=== PATIENT | female | born 1975 | race Caucasian/White ===

== ENCOUNTER 2019-12-12 13:53 | Emergency (ER) | payer OTHER ==
[2019-12-12 14:04] VITALS: BP 127/68; PULSE 83; TEMP 97.9; BMI 44.6
--- NOTE | 2019-12-12 14:55 | PDOC ---
History of Present Illness - General Chief Complaint: Vaginal Bleeding Stated Complaint: VAGINAL DISCHARGE Time Seen by Provider: 12/12/19 14:34 History Source: Patient Exam Limitations: No Limitations - History of Present Illness Initial Comments: 12/12/19 16:04 44 yo F with a hx of breast cancer s/p resection now in remission with prior C/ S presents to the emergency department with headache with concurrent vaginal bleeding. Per the patient, she has had 3 weeks of vaginal bleeding with associative lower abdominal cramping without radiation that is 4/10 in severity without radiation without aggravating or relieving factors. She has changed her pads 6-7x/day. The patient's headache was gradual in onset, located in the frontal aspect, with radiation to the back, sharp in nature, and has been ongoing for 1 week with gradual onset. Endorses subjective blurry vision, dizziness, and nausea. Denies the following: trauma, FND, vomiting, and lightheadedness. 3 years ago, the patient had continue vaginal bleeding with endometrial biopsy without abnormality. Meds: tamoxifen, iron allergies: NKDA Past History - Past Medical History Allergies/Adverse Reactions: Allergies Allergy/AdvReac Type Severity Reaction Status Date / Time No Known Allergies Allergy Verified 12/12/19 13:57 Home Medications: Ambulatory Orders Ibuprofen [Advil -] 400 mg PO TID PRN 12/12/19 COPD: No Other medical history: transfusion 2017 - Psycho Social/Smoking Cessation Hx Smoking History: Never smoked Hx Alcohol Use: No Drug/Substance Use Hx: No Review of Systems - Review of Systems Able to Perform ROS?: Yes Is the patient limited Citizen Of [place] proficient: No Constitutional: Yes: Weakness. No: Chills, Diaphoresis, Fever HEENTM: Yes: Blurred Vision. No: Eye Pain, Ear Pain, Nose Pain, Throat Pain, Mouth Pain Respiratory: No: Cough, Shortness of Breath, Hemoptysis Cardiac (ROS): No: Chest Pain, Lightheadedness, Palpitations, Chest Tightness ABD/GI: Yes: Nausea, Abdominal cramping. No: Constipated, Diarrhea, Poor Appetite, Poor Fluid Intake, Rectal Bleeding, Vomiting, Tarry Stools : No: Burning, Hematuria Musculoskeletal: No: Back Pain, Joint Pain, Neck Pain Integumentary: No: Bruising, Erythema, Rash Neurological: Yes: Headache. No: Numbness, Tingling, Tremors, Ataxia Psychiatric: No: Change in Appetite Endocrine: No: Unexplained Weight Loss Hematologic/Lymphatic: No: Anemia *Physical Exam - Vital Signs Last Vital Signs Temp Pulse Resp BP Pulse Ox 97.9 F 83 15 127/68 100 12/12/19 14:01 12/12/19 14:01 12/12/19 14:01 12/12/19 14:01 12/12/19 14:01 - Physical Exam General Appearance: Yes: Nourished, Appropriately Dressed. No: Apparent Distress, Intoxicated HEENT: positive: EOMI, JORGE, Normal Voice, Symmetrical, Pharynx Normal, Hearing Grossly Normal. negative: Pale Conjunctivae, Scleral Icterus (R), Scleral Icterus (L), Muffled/Hoarse voice, Pharyngeal Erythema, Tonsillar Exudate, Tonsillar Erythema, Nasal Congestion, Rhinorrhea, Sinus Tenderness, Excessive drooling Neck: positive: Trachea midline, Supple. negative: Tender, Lymphadenopathy (R) , Lymphadenopathy (L), Tender lateral, Tender midline Respiratory/Chest: positive: Lungs Clear, Normal Breath Sounds. negative: Chest Tender, Respiratory Distress, Accessory Muscle Use, Crackles, Rales, Rhonchi, Stridor, Wheezing Cardiovascular: positive: Regular Rhythm, Regular Rate, S1, S2. negative: Systolic Murmur Female Pelvic Exam: positive: normal external exam, cervical os closed, adnexal tenderness (right mild), other (blood in the vaginal vault). negative: CMT Gastrointestinal/Abdominal: positive: Normal Bowel Sounds, Tender (suprapubic region), Flat, Soft. negative: Distended, Guarding, Rebound Lymphatic: negative: Adenopathy Musculoskeletal: positive: Normal Inspection. negative: CVA Tenderness, Vertebral Tenderness Extremity: positive: Normal Capillary Refill, Normal Inspection, Normal Range of Motion. negative: Tender, Swelling, Calf Tenderness Integumentary: positive: Normal Color, Dry, Warm Neurologic: positive: structural draftsman II-XII NML intact, Fully Oriented, Alert, Normal Mood/ Affect, Normal Response, Motor Strength 5/5 ED Treatment Course - LABORATORY CBC & Chemistry Diagram: 12/12/19 14:45 12/12/19 14:45 Medical Decision Making - Medical Decision Making 44 yo F with a hx of breast cancer s/p resection now in remission with prior C/ S presents to the emergency department with headache with concurrent vaginal bleeding. Initial vitals: Initial Vital Signs Temp Pulse Resp BP Pulse Ox 97.9 F 83 15 127/68 100 12/12/19 14:01 12/12/19 14:01 12/12/19 14:01 12/12/19 14:01 12/12/19 14:01 Work up: ddx: patient presents with two main chief complaints. ddx headache: tension vs migraine vs cluster vs intracranial hemorrhage vs SAH ddx abdominal pain: ovarian torsion vs ovarian cyst vs UTI vs nephrolithiasis vs ectopic Patient had minimal pain on examination centered in the suprapubic region. Unlikely to be GI pathologies given relatively benign examination. Laboratory Tests 12/12/19 12/12/19 12/12/19 14:45 14:45 14:45 WBC 5.1 RBC 3.82 Hgb 10.0 L Hct 30.5 L MCV 79.7 L MCH 26.1 MCHC 32.7 RDW 16.0 H Plt Count 318 MPV 9.2 Absolute Neuts (auto) 2.4 Neutrophils % 46.9 Lymphocytes % 42.3 H Monocytes % 7.4 Eosinophils % 2.6 Basophils % 0.8 Nucleated RBC % 0 Sodium 139 Potassium 3.9 Chloride 110 H Carbon Dioxide 24 Anion Gap 5 L BUN 8.8 Creatinine 0.5 L Est GFR (CKD-EPI)AfAm 136.42 Est GFR (CKD-EPI)NonAf 117.71 Random Glucose 112 H Calcium 8.1 L Total Bilirubin 0.1 L AST 44 H ALT 50 Alkaline Phosphatase 130 H Total Protein 7.2 Albumin 3.3 L Serum , Qual Negative Urine Color Urine Appearance Urine pH Ur Specific [place] Urine Protein Urine Glucose (UA) Urine Ketones Urine Blood Urine Nitrite Urine Bilirubin Urine Urobilinogen Ur Leukocyte Esterase Urine WBC (Auto) Urine RBC (Auto) Urine Casts (Auto) U Epithel Cells (Auto) Urine Bacteria (Auto) Blood Type Antibody Screen 12/12/19 12/12/19 14:45 18:40 WBC RBC Hgb Hct MCV MCH MCHC RDW Plt Count MPV Absolute Neuts (auto) Neutrophils % Lymphocytes % Monocytes % Eosinophils % Basophils % Nucleated RBC % Sodium Potassium Chloride Carbon Dioxide Anion Gap BUN Creatinine Est GFR (CKD-EPI)AfAm Est GFR (CKD-EPI)NonAf Random Glucose Calcium Total Bilirubin AST ALT Alkaline Phosphatase Total Protein Albumin Serum , Qual Urine Color Red Urine Appearance Cloudy Urine pH 6.0 Ur Specific [place] 1.013 Urine Protein Trace Urine Glucose (UA) Negative Urine Ketones Negative Urine Blood 3+ H Urine Nitrite Negative Urine Bilirubin Negative Urine Urobilinogen 0.2 Ur Leukocyte Esterase Negative Urine WBC (Auto) 4 Urine RBC (Auto) 1974 Urine Casts (Auto) 2 U Epithel Cells (Auto) 1.7 Urine Bacteria (Auto) 9.3 Blood Type O POSITIVE Antibody Screen Negative blood noted in the urine likely secondary to vaginal bleeding; unlikely to be nephrolithiasis Head CT was negative for acute intracranial pathology. A partly empty sella turcica was noted with partial imaging of several left maxillary sinus mucus retention cysts/polyps. TVUS shows several right ovarian cysts with the most prominent measuring 4.5 cm in diameter. Endometrial thickening noted. On reassessment, the patient had resolution of pain. A copy of the CT and US was given to the patient. I advised the patient to follow up with the OBGYN physician on the ovarian cysts and endometrial thickening. She understood this plan. In addition, it was advised to follow up with ENT and neurology for findings in the head CT. The patient understood. Patient was able to ambulate out of the department on their own volition Discharge - Discharge Information Problems reviewed: Yes Clinical Impression/Diagnosis: Dysfunctional uterine bleeding, Headache, Ovarian cyst Condition: Improved Disposition: HOME - Admission No - Follow up/Referral Referrals: Sara Box MD [Staff Physician] - Andrzej Apple MD [Staff Physician] - Chapin Romero MD [Staff Physician] - - Patient Discharge Instructions Patient Printed Discharge Instructions: DI for Ovarian Cyst, DI for Vaginal Bleeding Additional Instructions: You were seen in the emergency department for the evaluation of your headache and vaginal bleeding. Please see all three of the specialists within 1 week after discharge for follow up care and management. Your head CT shows an empty sella turcica and your ultrasound of the uterus shows a 4.5 ovarian cyst on the right. Please return to the emergency department for follow up care and management if you have worsening symptoms or new concerning symptoms. Thank you. Usted fue visto en el departamento de emergencias para la evaluacin de damon dolor de sean y sangrado vaginal. Consulte a los paloma especialistas dentro de 1 semana despus del rogerio para recibir atencin y manejo de seguimiento. La tomografa computarizada de la sean muestra jeff silla turca mesha y damon ultrasonido del tero muestra un quiste ovrico 4.5 a la derecha. Regrese al departamento de emergencias para recibir atencin y control de seguimiento si tiene sntomas empeorados o sntomas nuevos relacionados. Skip. - Post Discharge Activity
[2019-12-12 15:07] LABS: BASO % 0.8 % (0-2.0); EOS % 2.6 % (0-4.5); HEMATOCRIT 30.5 % (32.4-45.2); LYMPH % 42.3 % (8-40); MCH 26.1 pg (25.7-33.7); MCHC 32.7 g/dl (32.0-36.0); MEAN CELL VOLUME 79.7 fl (80-96); MEAN PLT VOLUME 9.2 fl (7.5-11.1); MONO % 7.4 % (3.8-10.2); NEUT % 46.9 % (42.8-82.8); PLATELET COUNT 318 K/MM3 (134-434); RBC 3.82 M/mm3 (3.60-5.2); WHITE BLOOD COUNT 5.1 K/mm3 (4.0-10.0)
[2019-12-12 15:25] LABS: ALBUMIN 3.3 g/dl (3.4-5.0); BILIRUBIN,TOTAL 0.1 mg/dL (0.2-1); BLOOD UREA NITROGEN 8.8 mg/dL (7-18); CALCIUM 8.1 mg/dL (8.5-10.1); CREATININE 0.5 mg/dL (0.55-1.3); POTASSIUM 3.9 mmol/L (3.5-5.1); TOT PROT 7.2 g/dl (6.4-8.2)
[2019-12-12] MEDS ORDERED: ACETAMINOPHEN 1000 MG/100 ML VIAL (NON FORMULARY) IVPB ONE (15:36)
[2019-12-12] MEDS ORDERED: SODIUM CHLORIDE 1,000 ML IV STA (15:44)
[2019-12-12] MEDS ORDERED: ACETAMINOPHEN INJECTION 100 ML IVPB ONE (15:46)
[2019-12-12] MEDS ORDERED: METOCLOPRAMIDE HCL INJECTION 10 MG/2 ML VIAL IVPUSH ONE (15:53)
--- NOTE | 2019-12-12 15:53 | PDOC ---
Attending Attestation - Resident Resident Name: Pete Jara - ED Attending Attestation I have performed the following: I have examined & evaluated the patient, The case was reviewed & discussed with the resident, I agree w/resident's findings & plan - HPI HPI: 12/12/19 15:50 44 YOF with h/o breast ca in remission, prior c section. presenting with frontal headache x 3 days. nausea no vomiting blurry vision x 3 weeks of lower abdominal cramping, worse on right side radiating to midline , spasms, intermittent, unpredictable, no alleviating or exacerbating factors. vaginal bleeding x 3 weeks, no clots, 6-7 soaked pads/day, every day. - Physicial Exam PE: 12/12/19 15:51 Agree with the resident's HPI and PE as documented in the electronic medical record. NAD, well appearing, EOMI, PERRL, nl conjunctiva, anicteric; neck supple. lungs clear, RRR, abdomen soft morbidly obese, +suprapubic TTP, no rebound, guarding. Back nontender. BRYAN x4, no focal neuro deficits. No peripheral edema. normal color for ethnicity, WWP. pelvic exam by resident, see note 12/12/19 16:36 - Medical Decision Making 12/12/19 15:52 Vital Signs Temp Pulse Resp BP Pulse Ox 97.9 F 83 15 127/68 100 12/12/19 14:01 12/12/19 14:01 12/12/19 14:01 12/12/19 14:01 12/12/19 14:01 VS reviewed, wnl. normotensive DDx abdominal pain/VB and headache.: ovarian cyst, ovarian torsion, TOA, appy, UTI, pyelonephritis, STD/PID, Mittelschmerz, anemia, electrolyte/metabolic derangements, DUB; migraine, cluster, tension mccartney, SAH/bleed, CVA. pelvic exam abdomen nonperitoneal, +suprapubic TTP supportive care, IVF, analgesia, including reglan, tylenol, reassess VS wnl, normotensive, no tachy or hypoxia/respiratory distress. abdomen benign on reeval and no peritoneal findings, no VB here, controlled head CT TVUS with right sided ovarian cysts, no evidence of torsion. thickened endometrium, nabothian cysts, cherrie with menstrual cycle. does have e/o DUB, lmp 3 wks ago, usually irregular. s/o to Dr Bermudez pending reeval, pelvic exam and CT imaging, reeval after meds 12/12/19 17:28
[2019-12-12] MEDS ORDERED: METOCLOPRAMIDE HCL INJECTION 10 MG/2 ML VIAL ONE (16:31)
--- NOTE | 2019-12-12 18:40 | PDOC ---
*Physical Exam - Vital Signs Last Vital Signs Temp Pulse Resp BP Pulse Ox 97.9 F 83 15 127/68 100 12/12/19 14:01 12/12/19 14:01 12/12/19 14:01 12/12/19 14:01 12/12/19 14:01 - Physical Exam 12/12/19 18:39 Awake alert no acute distress abdomen is soft mild right lower quadrant quadrant tenderness pelvic is with blood in the vaginal vault minimal right adnexal tenderness no CMT no left adnexal tenderness no masses ED Treatment Course - LABORATORY CBC & Chemistry Diagram: 12/12/19 14:45 12/12/19 14:45 - ADDITIONAL ORDERS Additional order review: Laboratory Results 12/12/19 12/12/19 12/12/19 14:45 14:45 14:45 Sodium 139 Potassium 3.9 Chloride 110 H Carbon Dioxide 24 Anion Gap 5 L BUN 8.8 Creatinine 0.5 L Est GFR (CKD-EPI)AfAm 136.42 Est GFR (CKD-EPI)NonAf 117.71 Random Glucose 112 H Calcium 8.1 L Total Bilirubin 0.1 L AST 44 H ALT 50 Alkaline Phosphatase 130 H Total Protein 7.2 Albumin 3.3 L Serum , Qual Negative Blood Type O POSITIVE Antibody Screen Negative 12/12/19 14:45 RBC 3.82 MCV 79.7 L MCHC 32.7 RDW 16.0 H MPV 9.2 Neutrophils % 46.9 Lymphocytes % 42.3 H Monocytes % 7.4 Eosinophils % 2.6 Basophils % 0.8 - Medications Given in the ED: ED Medications Discontinued Medications Generic Name Dose Route Start Last Admin Trade Name Miguel PRN Reason Stop Dose Admin Acetaminophen 1,000 mg 12/12/19 15:36 12/12/19 15:49 Ofirmev Injection - IVPB 12/12/19 15:37 1,000 mg ONCE ONE Administration Sodium Chloride 1,000 mls @ 1,000 mls/hr 12/12/19 15:44 12/12/19 17:30 Normal Saline - IV 12/12/19 16:43 1,000 mls/hr ASDIR STA Administration Metoclopramide HCl 10 mg 12/12/19 15:53 12/12/19 17:30 Reglan Injection - IVPUSH 12/12/19 15:54 10 mg ONCE ONE Administration Medical Decision Making - Medical Decision Making 12/12/19 18:38 44-year-old female history of breast CA in remission here today complaining of a headache as well as dysfunctional vaginal bleeding patient has been bleeding for 3 weeks also complaining of lower abdominal pain worse on the right side no chest pain no shortness of breath no other current complaints does not take any blood thinners patient was signed out to me assumed care of the patient at [address] and pelvic ultrasound. Pelvic ultrasound was noted for a several small right ovarian cyst and one measuring 4 x 5cm pelvic exam was performed with Dr. Jara patient had minimal tenderness on the right side no cervical motion tenderness did have some blood in the vaginal vault explained the patient she will require close follow-up for her ultrasound to monitor the cyst demonstrates good understanding At this time patient states her headache feels much improved head CT was reviewed by me no obvious changes awaiting for radiology reads likely DC to home follow-up with gynecology 12/12/19 19:14 ct head negative. empty sella turcica. of no clinical significance usually. will give pt nuerology followup . clinically improved headache gone. dc home with gynecology and nuerology followup. ua negative except blood. Discharge - Discharge Information Problems reviewed: Yes Clinical Impression/Diagnosis: Dysfunctional uterine bleeding, Headache, Ovarian cyst Condition: Improved Disposition: HOME - Admission No - Follow up/Referral Referrals: Andrzej Apple MD [Staff Physician] - - Patient Discharge Instructions - Post Discharge Activity
[2019-12-12 19:05] LABS: EPI CELLS 1.7 /HPF (0-5/HPF); HYALINE CASTS 2 /lpf (0-8); URINE APPEARANCE CLOUDY; URINE BACTERIA 9.3 /hpf (NEGATIVE); URINE BILIRUBIN NEGATIVE (NEGATIVE); URINE COLOR RED; URINE GLUCOSE (UA) NEGATIVE (NEGATIVE); URINE KETONE NEGATIVE (NEGATIVE); URINE LEUK ESTERASE NEGATIVE (NEGATIVE); URINE NITRITE NEGATIVE (NEGATIVE); URINE PROTEIN TRACE (NEGATIVE); URINE RBC 1974 /hpf (0-4); URINE UROBILINOGEN 0.2 mg/dL (0.2-1.0); URINE WBC 4 /hpf (0-5)
== END 2019-12-12 19:37 | disposition home or self-care (01) ==
LOC: JER 13:53
PROC: 3E033GC Introduction of Other Therapeutic Substance into Peripheral Vein, Percutaneous Approach (ICD-10-PCS; principal; 2019-12-12)
PROC: 3E033NZ Introduction of Analgesics, Hypnotics, Sedatives into Peripheral Vein, Percutaneous Approach (ICD-10-PCS; 2019-12-12)
DX: N93.8 Other specified abnormal uterine and vaginal bleeding (principal); R51 Headache; N83.201 Unspecified ovarian cyst, right side; Z85.3 Personal history of malignant neoplasm of breast
CPT/HCPCS: 36415; 70450-TC; 76830-TC; 80053; 81003; 84703; 85025; 86850; 86900; 86901; 87086; 96374; 96375; 99285-25; J0131; J7030

== ENCOUNTER 2021-01-15 05:31 | Inpatient (IN) | payer OTHER ==
[2021-01-15 06:44] LABS: BASO % 0.6 % (0-2.0); EOS % 0.9 % (0-4.5); HEMATOCRIT 25.4 % (32.4-45.2); HEMOGLOBIN 8.3 GM/dL (10.7-15.3); LYMPH % 27.9 % (8-40); MCH 23.7 pg (25.7-33.7); MCHC 32.7 g/dl (32.0-36.0); MEAN CELL VOLUME 72.7 fl (80-96); MEAN PLT VOLUME 9.9 fl (7.5-11.1); NEUT % 62.6 % (42.8-82.8); PLATELET COUNT 261 K/MM3 (134-434); RBC 3.49 M/mm3 (3.60-5.2); RDW 18.9 % (11.6-15.6); WHITE BLOOD COUNT 5.9 K/mm3 (4.0-10.0)
[2021-01-15 06:55] LABS: INR 0.99 (0.83-1.09)
[2021-01-15 07:03] LABS: CHLORIDE 105 mmol/L (98-107); POTASSIUM 3.8 mmol/L (3.5-5.1); SODIUM 136 mmol/L (136-145)
[2021-01-15 07:05] LABS: ANION GAP 7 MMOL/L (8-16); BLOOD UREA NITROGEN 8.3 mg/dL (7-18); CALCIUM 7.9 mg/dL (8.5-10.1); CO2 25 mmol/L (21-32); GLUCOSE,RANDOM 188 mg/dL (74-106)
[2021-01-15 07:06] LABS: ALBUMIN 3.3 g/dl (3.4-5.0)
[2021-01-15 07:08] LABS: CREATININE 0.5 mg/dL (0.55-1.3)
[2021-01-15 07:09] LABS: SGOT/AST 222 U/L (15-37); SGPT/ALT 205 U/L (13-61)
[2021-01-15 07:10] LABS: BILIRUBIN,TOTAL 0.2 mg/dL (0.2-1); TOT PROT 7.1 g/dl (6.4-8.2)
[2021-01-15 07:12] LABS: ALK PHOS 146 U/L (45-117)
[2021-01-15 08:37] LABS: BILIRUBIN,DIRECT 0.1 mg/dL (0.0-0.2)
[2021-01-15 08:39] LABS: LDH 165 U/L (84-246)
[2021-01-15] MEDS ORDERED: ENOXAPARIN NA (PORCINE) 40 MG/0.4 ML DISP.SYRIN SQ SCH (13:45)
[2021-01-15] MEDS ORDERED: ENOXAPARIN NA (PORCINE) 40 MG/0.4 ML DISP.SYRIN SQ ONE (13:59)
[2021-01-15] MEDS: SODIUM CHLORIDE 1,000 ML IV SCH (14:02)
[2021-01-15] MEDS ORDERED: ACETAMINOPHEN INJECTION 100 ML IVPB ONE (14:43)
[2021-01-15] MEDS ORDERED: ASCORBIC ACID 500 MG TABLET (FP) ONE (15:09)
[2021-01-15] MEDS: ASCORBIC ACID 500 MG TABLET (FP) PO SCH (15:10)
[2021-01-15] MEDS ORDERED: ZINC SULFATE 220 MG CAPSULE (FP) ONE (15:10)
[2021-01-15] MEDS: ZINC SULFATE 220 MG CAPSULE (FP) PO SCH (15:10)
[2021-01-15 15:49] LABS: EPI CELLS >36 /uL (0-25.1); HYALINE CASTS 10 /uL (0-3.1); PH,URINE 5.5 (5.0-8.0); URINE APPEARANCE CLOUDY; URINE BACTERIA 1329 /uL (0-1359); URINE BILIRUBIN NEGATIVE (NEGATIVE); URINE COLOR DK YELLOW; URINE GLUCOSE (UA) TRACE (NEGATIVE); URINE KETONE NEGATIVE (NEGATIVE); URINE LEUK ESTERASE TRACE (NEGATIVE); URINE NITRITE NEGATIVE (NEGATIVE); URINE PROTEIN 1+ (NEGATIVE); URINE RBC 2402 /uL (0-23.9); URINE UROBILINOGEN 0.2 mg/dL (0.2-1.0); URINE WBC 66 /uL (0-25.8)
[2021-01-15 20:59] VITALS: BMI 46.7
[2021-01-15] MEDS: FAMOTIDINE 20 MG/50 ML IVPB 20 MG/50 ML MG IVPB SCH (21:21)
[2021-01-16] MEDS: SODIUM CHLORIDE 1,000 ML IV SCH ×3 (02:04→21:15)
[2021-01-16 09:23] LABS: BASO % 0.4 % (0-2.0); EOS % 0.7 % (0-4.5); HEMATOCRIT 25.9 % (32.4-45.2); HEMOGLOBIN 8.5 GM/dL (10.7-15.3); LYMPH % 42.1 % (8-40); MCH 25.2 pg (25.7-33.7); MEAN CELL VOLUME 76.2 fl (80-96); MEAN PLT VOLUME 10.1 fl (7.5-11.1); MONO % 7.9 % (3.8-10.2); NEUT % 48.9 % (42.8-82.8); PLATELET COUNT 233 K/MM3 (134-434); RBC 3.39 M/mm3 (3.60-5.2); RDW 20.4 % (11.6-15.6); WHITE BLOOD COUNT 5.3 K/mm3 (4.0-10.0)
[2021-01-16 09:42] LABS: POTASSIUM 3.5 mmol/L (3.5-5.1)
[2021-01-16 09:47] LABS: ALBUMIN 2.9 g/dl (3.4-5.0)
[2021-01-16 09:50] LABS: CREATININE 0.4 mg/dL (0.55-1.3)
[2021-01-16 09:52] LABS: TOT PROT 6.4 g/dl (6.4-8.2)
[2021-01-16 09:53] LABS: BLOOD UREA NITROGEN 8.2 mg/dL (7-18)
[2021-01-16 09:54] LABS: CALCIUM 7.8 mg/dL (8.5-10.1)
[2021-01-16 09:56] LABS: PHOSPHOROUS 3.3 mg/dL (2.5-4.9)
[2021-01-16 09:57] LABS: BILIRUBIN,TOTAL 0.3 mg/dL (0.2-1)
[2021-01-16] MEDS: ASCORBIC ACID 500 MG TABLET (FP) PO SCH (11:13)
[2021-01-16] MEDS: ZINC SULFATE 220 MG CAPSULE (FP) PO SCH (11:13)
[2021-01-16] MEDS: FAMOTIDINE 20 MG/50 ML IVPB 20 MG/50 ML MG IVPB SCH ×2 (11:13→21:15)
[2021-01-16 12:58] LABS: HEMATOCRIT 26.3 % (32.4-45.2); HEMOGLOBIN 8.6 GM/dL (10.7-15.3); MCH 25.1 pg (25.7-33.7); MCHC 32.8 g/dl (32.0-36.0); MEAN CELL VOLUME 76.5 fl (80-96); MEAN PLT VOLUME 9.6 fl (7.5-11.1); PLATELET COUNT 233 K/MM3 (134-434); RBC 3.44 M/mm3 (3.60-5.2); RDW 19.9 % (11.6-15.6); WHITE BLOOD COUNT 5.7 K/mm3 (4.0-10.0)
[2021-01-16] MEDS ORDERED: DOCUSATE SODIUM 100 MG CAPSULE (FP) PO PRN (13:18)
[2021-01-16] MEDS ORDERED: PT OWN MED DRAWER 7, Y5N ONE ×2 (21:11→21:17)
[2021-01-16] MEDS: FERROUS SO4 300 MG/5 ML ORAL SOLN UNIT DOSE CUPS PO SCH (21:15)
[2021-01-16] MEDS: guaiFENesin/D-M SUGAR-FREE/ACLHOL-FREE 5 ML UNIT DOSE PO PRN (21:17)
[2021-01-17 00:33] LABS: HEMATOCRIT 29.7 % (32.4-45.2); HEMOGLOBIN 9.8 GM/dL (10.7-15.3); MCHC 32.8 g/dl (32.0-36.0); MEAN CELL VOLUME 79.1 fl (80-96); MEAN PLT VOLUME 9.9 fl (7.5-11.1); PLATELET COUNT 222 K/MM3 (134-434); RBC 3.76 M/mm3 (3.60-5.2); RDW 22.7 % (11.6-15.6); WHITE BLOOD COUNT 4.9 K/mm3 (4.0-10.0)
[2021-01-17 08:32] LABS: BASO % 0.5 % (0-2.0); EOS % 2.4 % (0-4.5); HEMATOCRIT 28.4 % (32.4-45.2); HEMOGLOBIN 9.4 GM/dL (10.7-15.3); LYMPH % 47.9 % (8-40); MCH 26.4 pg (25.7-33.7); MCHC 33.3 g/dl (32.0-36.0); MEAN CELL VOLUME 79.5 fl (80-96); MEAN PLT VOLUME 9.9 fl (7.5-11.1); MONO % 8.6 % (3.8-10.2); NEUT % 40.6 % (42.8-82.8); PLATELET COUNT 226 K/MM3 (134-434); RBC 3.57 M/mm3 (3.60-5.2); RDW 22.4 % (11.6-15.6)
[2021-01-17 08:53] LABS: POTASSIUM 3.4 mmol/L (3.5-5.1)
[2021-01-17 09:03] LABS: CALCIUM 7.9 mg/dL (8.5-10.1)
[2021-01-17 09:04] LABS: ALBUMIN 2.8 g/dl (3.4-5.0); BLOOD UREA NITROGEN 7.1 mg/dL (7-18)
[2021-01-17 09:06] LABS: BILIRUBIN,TOTAL 0.3 mg/dL (0.2-1); TOT PROT 6.3 g/dl (6.4-8.2)
[2021-01-17 09:09] LABS: CREATININE 0.4 mg/dL (0.55-1.3)
[2021-01-17] MEDS ORDERED: PT OWN MED DRAWER 7, Y5N ONE ×4 (09:54→23:15)
[2021-01-17] MEDS: ZINC SULFATE 220 MG CAPSULE (FP) PO SCH (10:05)
[2021-01-17] MEDS: ASCORBIC ACID 500 MG TABLET (FP) PO SCH (10:05)
[2021-01-17] MEDS: FAMOTIDINE 20 MG/50 ML IVPB 20 MG/50 ML MG IVPB SCH ×2 (10:06→21:58)
[2021-01-17] MEDS: FERROUS SO4 300 MG/5 ML ORAL SOLN UNIT DOSE CUPS PO SCH ×2 (10:06→21:58)
[2021-01-17 11:21] LABS: ANISOCYTOSIS 1+; MACROCYTOSIS 1+; PLATELET ESTIMATE NORMAL
[2021-01-17] MEDS: guaiFENesin/D-M SUGAR-FREE/ACLHOL-FREE 5 ML UNIT DOSE PO PRN (21:58)
[2021-01-18] MEDS: SODIUM CHLORIDE 1,000 ML IV SCH (01:05)
[2021-01-18] MEDS ORDERED: ACETAMINOPHEN 325 MG TABLET (FP) PO ONE (08:00)
[2021-01-18] MEDS ORDERED: PT OWN MED DRAWER 7, Y5N ONE (09:44)
[2021-01-18] MEDS: ZINC SULFATE 220 MG CAPSULE (FP) PO SCH (10:00)
[2021-01-18] MEDS: FERROUS SO4 300 MG/5 ML ORAL SOLN UNIT DOSE CUPS PO SCH ×2 (10:00→22:39)
[2021-01-18] MEDS: FAMOTIDINE 20 MG/50 ML IVPB 20 MG/50 ML MG IVPB SCH ×2 (10:00→22:39)
[2021-01-18] MEDS: ASCORBIC ACID 500 MG TABLET (FP) PO SCH (10:00)
[2021-01-18 10:28] LABS: HEMOGLOBIN 9.3 GM/dL (10.7-15.3); MCH 27.1 pg (25.7-33.7); MCHC 33.1 g/dl (32.0-36.0); MEAN CELL VOLUME 81.9 fl (80-96); MEAN PLT VOLUME 10.2 fl (7.5-11.1); PLATELET COUNT 224 K/MM3 (134-434); RBC 3.42 M/mm3 (3.60-5.2); RDW 23.1 % (11.6-15.6); WHITE BLOOD COUNT 5.4 K/mm3 (4.0-10.0)
[2021-01-18 10:37] LABS: POTASSIUM 3.3 mmol/L (3.5-5.1)
[2021-01-18 10:41] LABS: BLOOD UREA NITROGEN 7.2 mg/dL (7-18); CALCIUM 8.4 mg/dL (8.5-10.1); MAGNESIUM 2.1 mg/dL (1.8-2.4)
[2021-01-18 10:44] LABS: CREATININE 0.4 mg/dL (0.55-1.3)
[2021-01-18 10:46] LABS: BILIRUBIN,TOTAL 0.4 mg/dL (0.2-1); TOT PROT 6.5 g/dl (6.4-8.2)
[2021-01-18] MEDS ORDERED: POTASSIUM CHLORIDE TABS 20 MEQ TABLET.ER (FP) PO ONE (11:53)
[2021-01-18 16:22] LABS: HEMATOCRIT 29.9 % (32.4-45.2); HEMOGLOBIN 10.1 GM/dL (10.7-15.3); MCH 26.7 pg (25.7-33.7); MCHC 33.6 g/dl (32.0-36.0); MEAN CELL VOLUME 79.4 fl (80-96); MEAN PLT VOLUME 9.7 fl (7.5-11.1); PLATELET COUNT 262 K/MM3 (134-434); RBC 3.77 M/mm3 (3.60-5.2); RDW 23.8 % (11.6-15.6); WHITE BLOOD COUNT 6.4 K/mm3 (4.0-10.0)
[2021-01-18] MEDS: guaiFENesin/D-M SUGAR-FREE/ACLHOL-FREE 5 ML UNIT DOSE PO PRN (22:53)
[2021-01-19 09:19] LABS: BASO % 0.5 % (0-2.0); EOS % 4.3 % (0-4.5); HEMATOCRIT 29.2 % (32.4-45.2); HEMOGLOBIN 9.9 GM/dL (10.7-15.3); LYMPH % 42.3 % (8-40); MCH 27.5 pg (25.7-33.7); MEAN PLT VOLUME 9.5 fl (7.5-11.1); MONO % 6.7 % (3.8-10.2); NEUT % 46.2 % (42.8-82.8); PLATELET COUNT 264 K/MM3 (134-434); RBC 3.61 M/mm3 (3.60-5.2); RDW 23.9 % (11.6-15.6); WHITE BLOOD COUNT 5.3 K/mm3 (4.0-10.0)
[2021-01-19 09:47] LABS: POTASSIUM 3.4 mmol/L (3.5-5.1)
[2021-01-19] MEDS ORDERED: PT OWN MED DRAWER 7, Y5N ONE (10:12)
[2021-01-19 10:16] LABS: ALBUMIN 3.3 g/dl (3.4-5.0); BLOOD UREA NITROGEN 8.3 mg/dL (7-18); CALCIUM 8.3 mg/dL (8.5-10.1)
[2021-01-19] MEDS: FERROUS SO4 300 MG/5 ML ORAL SOLN UNIT DOSE CUPS PO SCH ×2 (10:17→21:04)
[2021-01-19] MEDS: ASCORBIC ACID 500 MG TABLET (FP) PO SCH (10:17)
[2021-01-19] MEDS: FAMOTIDINE 20 MG/50 ML IVPB 20 MG/50 ML MG IVPB SCH ×2 (10:17→21:03)
[2021-01-19] MEDS: ZINC SULFATE 220 MG CAPSULE (FP) PO SCH (10:17)
[2021-01-19 10:19] LABS: CREATININE 0.5 mg/dL (0.55-1.3)
[2021-01-19 10:20] LABS: PHOSPHOROUS 4.2 mg/dL (2.5-4.9)
[2021-01-19 10:21] LABS: BILIRUBIN,TOTAL 0.5 mg/dL (0.2-1); TOT PROT 7.2 g/dl (6.4-8.2)
[2021-01-20 04:06] LABS: FOLLICLE STIMULATING HORMONE 9.7 mIU/mL (.); LUTEINIZING HORMONE 5.4 mIU/mL (.)
[2021-01-20 08:50] LABS: BASO % 0.5 % (0-2.0); EOS % 4.7 % (0-4.5); HEMATOCRIT 29.9 % (32.4-45.2); HEMOGLOBIN 9.9 GM/dL (10.7-15.3); LYMPH % 42.5 % (8-40); MCH 26.9 pg (25.7-33.7); MCHC 33.2 g/dl (32.0-36.0); MEAN PLT VOLUME 8.8 fl (7.5-11.1); MONO % 5.8 % (3.8-10.2); NEUT % 46.5 % (42.8-82.8); PLATELET COUNT 280 K/MM3 (134-434); RBC 3.69 M/mm3 (3.60-5.2); RDW 24.7 % (11.6-15.6); WHITE BLOOD COUNT 6.7 K/mm3 (4.0-10.0)
[2021-01-20 09:10] LABS: POTASSIUM 3.9 mmol/L (3.5-5.1)
[2021-01-20 09:24] LABS: ALBUMIN 3.3 g/dl (3.4-5.0); BLOOD UREA NITROGEN 6.9 mg/dL (7-18); CALCIUM 8.8 mg/dL (8.5-10.1); MAGNESIUM 2.4 mg/dL (1.8-2.4)
[2021-01-20 09:26] LABS: CREATININE 0.5 mg/dL (0.55-1.3)
[2021-01-20 09:27] LABS: BILIRUBIN,TOTAL 0.4 mg/dL (0.2-1); PHOSPHOROUS 4.1 mg/dL (2.5-4.9)
[2021-01-20 09:28] LABS: TOT PROT 7.2 g/dl (6.4-8.2)
[2021-01-20] MEDS ORDERED: PT OWN MED DRAWER 7, Y5N ONE (11:08)
[2021-01-20] MEDS: FAMOTIDINE 20 MG/50 ML IVPB 20 MG/50 ML MG IVPB SCH (11:12)
[2021-01-20] MEDS: ZINC SULFATE 220 MG CAPSULE (FP) PO SCH (11:12)
[2021-01-20] MEDS: ASCORBIC ACID 500 MG TABLET (FP) PO SCH (11:12)
[2021-01-20] MEDS: FERROUS SO4 300 MG/5 ML ORAL SOLN UNIT DOSE CUPS PO SCH (11:12)
[2021-01-20 12:18] LABS: ANISOCYTOSIS 2+; MACROCYTOSIS 0; OVALOCYTE 1+; PLATELET ESTIMATE NORMAL
[2021-01-20 15:16] VITALS: BP 136/64; PULSE 82; TEMP 98.6
== END 2021-01-20 17:26 | disposition home or self-care (01) | DRG 663 ==
LOC: JER 05:31 → JERBED 12:20 → OBSVTOIN 13:41 → J8W 19:59
PROVIDERS: ADMIT Internal Medicine; ATTEND Internal Medicine
PROC: 30233N1 Transfusion of Nonautologous Red Blood Cells into Peripheral Vein, Percutaneous Approach (ICD-10-PCS; principal; 2021-01-15)
DX: D62 Acute posthemorrhagic anemia (principal); D25.9 Leiomyoma of uterus, unspecified; R55 Syncope and collapse; E11.9 Type 2 diabetes mellitus without complications; R74.01 Elevation of levels of liver transaminase levels; D35.2 Benign neoplasm of pituitary gland; K76.0 Fatty (change of) liver, not elsewhere classified; E66.9 Obesity, unspecified; T45.1X5A Adverse effect of antineoplastic and immunosuppressive drugs, initial encounter; N85.8 Other specified noninflammatory disorders of uterus; C50.919 Malignant neoplasm of unspecified site of unspecified female breast; D64.81 Anemia due to antineoplastic chemotherapy; Z68.42 Body mass index [BMI] 45.0-49.9, adult; U07.1 COVID-19; J84.10 Pulmonary fibrosis, unspecified; N39.0 Urinary tract infection, site not specified; B96.4 Proteus (mirabilis) (morganii) as the cause of diseases classified elsewhere
CPT/HCPCS: 36415; 36430; 36511; 71045-TC-FY; 71250-TC; 76705-TC; 76830-TC; 80053; 80061; 80074; 81003; 82248; 82550; 82553; 82627; 82728; 83001; 83002; 83036; 83540; 83550; 83605; 83615; 83721; 83735; 84100; 84146; 84443; 84484; 84703; 85025; 85027; 85610; 85730; 86140; 86304; 86480; 86769; 86850; 86900; 86901; 86922; 87040; 87086; 87186; 87804; 93005; 93010; 93880-TC; 99285-25; C9803; G0378; P9038; P9058; U0003; U0005